=== PATIENT | female | born 2000 | race Caucasian/White ===

== ENCOUNTER 2024-04-16 10:20 | Day surgery (SDC) | payer BC ==
[2024-04-08 14:48] LABS: BILIRUBIN,URINE NEGATIVE (Neg); CLARITY,URINE CLEAR (Clear); COLOR,URINE YELLOW (Yellow); GLUCOSE, URINE NEGATIVE (Neg); KETONES,URINE NEGATIVE (Neg); LEUKOCYTE ESTERASE ,URINE NEGATIVE (Neg); NITRITES, URINE NEGATIVE (Neg); OCCULT BLOOD,URINE SMALL (Neg); PH,URINE 8.5 (4.8-8.0); PROTEIN,URINE NEGATIVE (Neg)
[2024-04-08 14:50] LABS: BASOPHILS # (AUTO) 0.1 X10'3 (0-0.2); BASOPHILS % (AUTO) 0.7 % (0-1); EOSINOPHILS # (AUTO) 0.4 X10'3 (0-0.9); EOSINOPHILS % (AUTO) 2.9 % (0-6); LYMPHOCYTES # (AUTO) 3.1 X10'3 (1.1-4.8); MEAN CORPUSCULAR HEMOGLOBIN 28.8 PG (27.0-31.0); MEAN CORPUSCULAR HGB CONC 32.5 g/dL (33.0-36.5); MEAN CORPUSCULAR VOLUME 88.8 FL (78-98); MEAN PLATELET VOLUME 8.4 FL (7.4-10.4); MONOCYTES # (AUTO) 0.7 X10'3 (0-0.9); MONOCYTES % (AUTO) 5.9 % (2-12); NEUTROPHILS # (AUTO) 7.8 X10'3 (1.8-7.7); NEUTROPHILS % (AUTO) 64.5 % (42-75); PRE OP PLATELET COUNT 359 X10'3 (140-440); PRE OP WHITE BLOOD COUNT 12.1 10'3 (4.8-10.8); RED BLOOD COUNT 4.85 X10'6 (4.20-5.60); RED CELL DISTRIBUTION WIDTH 13.6 % (11.5-14.5)
[2024-04-08 15:05] LABS: UA COLLECTION TYPE NON-SPECIFIED
[2024-04-08 15:07] LABS: ALBUMIN 3.5 G/DL (3.4-5.0); ALBUMIN/GLOBULIN RATIO 0.9 (1.1-1.5); ALKALINE PHOSPHATASE 130 IU/L (46-116); BLOOD UREA NITROGEN 6 MG/DL (7-18); BUN/CREATININE RATIO 7.3 (10.0-20.0); CALCIUM 8.7 MG/DL (8.5-10.1); CHLORIDE 101 MMOL/L (99-107); CREATININE 0.82 MG/DL (0.40-0.90); PRE OP ALT 44 U/L (30-65); PRE OP ANION GAP 7 (8-16); PRE OP AST 29 U/L (10-37); PRE OP BILIRUB, TOTAL 0.3 MG/DL (0.0-1.0); PRE OP GLUCOSE 100 MG/DL (70-104); PRE OP POTASSIUM 3.6 MMOL/L (3.4-5.1); PRE OP SODIUM 139 MMOL/L (135-145); TOTAL CARBON DIOXIDE 31.2 MMOL/L (24-32); TOTAL PROTEIN 7.4 G/DL (6.4-8.2); eGFR 85 ML/MIN
[2024-04-08 15:09] LABS: HCG SERUM QL NEGATIVE
[2024-04-08 15:11] LABS: SQUAMOUS EPITHELIAL CELL,UR MANY /LPF (FEW)
[2024-04-08 15:12] LABS: RBC,URINE 0-2 /HPF (0-2)
[2024-04-08 15:13] LABS: BACTERIA,URINE FEW /HPF (Neg)
[2024-04-16] VITALS (7 sets, daily range): BP systolic 125–153; BP diastolic 80–94; PULSE 70–114; RESP 16; TEMP 99.1; O2SAT 93–97
[~2024-04-16] VITALS: Ht 162.6 cm; Wt 122.2 kg
[2024-04-16] MEDS: Cefazolin 3 GM/100ML NS IVPB 100 ML IV ONE (05:30)
[~2024-04-16 10:20] MED LIST: AMPH10TA2 PO; BUPR-561 PO; CARI4.5C PO; DESV50TA20 PO; LITH300C PO; LORA-269 PO; PRAZ5CAP2 PO; QUET100T34 PO; TIRZ2.5P SQ
[2024-04-16] MEDS: famotidine 20mg tablet PO ONE (11:11)
[2024-04-16] MEDS: ringers solution, lacted 1,000 ML IV SCH (11:12)
[2024-04-16] MEDS ORDERED: LIDOcaine 2% (20mg/ml) 5ml vial ONE (12:15)
[2024-04-16] MEDS ORDERED: propofol inj 20 ML IV ONE (12:15)
[2024-04-16] MEDS ORDERED: BUPIVAcaine 0.5% inj/PF 60 ML ONE (12:17)
[2024-04-16] MEDS ORDERED: BUPIVACAINE liposomal/PF 13.3 MG/ML vial IM ONE (12:17)
[2024-04-16] MEDS ORDERED: sevoflurane 250ml liquid IH ONE (12:50)
[2024-04-16] MEDS ORDERED: fentaNYL/PF 50MCG/1 ML 2ML syringe ONE ×2 (12:53→15:46)
[2024-04-16] MEDS ORDERED: midazolam 1 mg/ML 2ml injection ONE (12:53)
[2024-04-16] MEDS ORDERED: acetaminophen 1,000mg/100ml IV 100 ML IV ONE (13:21)
[2024-04-16] MEDS ORDERED: ondansetron/PF 4mg/2ml inj ONE (13:22)
[2024-04-16] MEDS ORDERED: ketorolac trometh 30MG/ML vial 30 MG/ML VIAL ONE (14:47)
[2024-04-16] MEDS ORDERED: bacitracin 15gm ointment TP ONE (14:56)
[2024-04-16] MEDS: ondansetron/PF 4mg/2ml inj ONE (16:17)
[2024-04-16] MEDS ORDERED: ondansetron/PF 4mg/2ml inj IV PRN (16:20)
[2024-04-16] MEDS ORDERED: hydrALAZINE 20mg/ml inj. IV PRN (16:20)
[2024-04-16] MEDS ORDERED: labetalol 20mg/4ml (5mg/ml) syringe IV PRN (16:20)
[2024-04-16] MEDS ORDERED: proMETHazine 25mg rectal suppository RC PRN ×2 (16:20)
[2024-04-16] MEDS ORDERED: morphine 2 MG/ML inj. syringe IV PRN (16:20)
[2024-04-16] MEDS ORDERED: ringers solution, lacted 1,000 ML IV SCH (16:20)
[2024-04-16] MEDS ORDERED: fentaNYL/PF 50MCG/1 ML 2ML syringe IV PRN (16:20)
[2024-04-16] MEDS ORDERED: scopolamine 1MG/72H patch 1 PATCH PATCH.TD.3 TD SCH (16:20)
[2024-04-16] MEDS ORDERED: morphine 4 MG/ML inj SYRINge IV PRN (16:20)
[2024-04-16] MEDS: proCHLORperazine 10 MG/2 ml inj IV PRN (16:31)
[2024-04-16] MEDS: fentaNYL/PF 50MCG/1 ML 2ML syringe IV PRN (16:31)
== END 2024-04-16 17:15 | disposition home or self-care (01) ==
LOC: PRE-OP 10:20 → PAS 17:15
PROVIDERS: ATTEND Podiatrist Foot & Ankle Surgery
DX: M25.371 Other instability, right ankle (principal); M25.571 Pain in right ankle and joints of right foot; M65.871 Other synovitis and tenosynovitis, right ankle and foot; G89.18 Other acute postprocedural pain; E66.01 Morbid (severe) obesity due to excess calories; G47.33 Obstructive sleep apnea (adult) (pediatric); F41.9 Anxiety disorder, unspecified; F31.9 Bipolar disorder, unspecified; Z79.899 Other long term (current) drug therapy; Z90.89 Acquired absence of other organs; Z98.890 Other specified postprocedural states; Z68.42 Body mass index [BMI] 45.0-49.9, adult; Z88.8 Allergy status to other drugs, medicaments and biological substances
CPT/HCPCS: 27698; 29898; 36415; 64445; 64447; 73600; 80053; 81001; 82948; 84703; 85025; 93005; A6222; C1713; C9290; J0131; J0690; J0780; J1100; J1885; J2250; J2405; J2704; J3010; J3490; J7120; Z7506; Z7508; Z7512; 76000; A4618; A6449; A7000; J2003

== ENCOUNTER 2025-01-14 05:23 | Day surgery (SDC) | payer MEDICAID ==
[2025-01-07 14:43] LABS: LEUKOCYTE ESTERASE ,URINE NEGATIVE (Neg); MEAN PLATELET VOLUME 8.6 FL (7.4-10.4); NITRITES, URINE NEGATIVE (Neg); OCCULT BLOOD,URINE NEGATIVE (Neg); PRE OP HEMATOCRIT 41.5 % (35.0-45.0); PRE OP HEMOGLOBIN 14.0 g/dL (12.0-16.0); PRE OP PLATELET COUNT 380 X10'3 (140-440); PRE OP WHITE BLOOD COUNT 14.8 10'3 (4.8-10.8); RED CELL DISTRIBUTION WIDTH 14.0 % (11.5-14.5)
[2025-01-07 14:46] LABS: UA COLLECTION TYPE NON-SPECIFIED
[2025-01-07 14:50] LABS: SQUAMOUS EPITHELIAL CELL,UR MANY /LPF (FEW)
[2025-01-07 15:10] LABS: HCG SERUM QL NEGATIVE
[2025-01-07 15:16] LABS: CREATININE 0.86 MG/DL (0.40-0.90); PRE OP ALT 49 U/L (30-65); PRE OP ANION GAP 7 (8-16); PRE OP AST 22 U/L (10-37); PRE OP BILIRUB, TOTAL 0.2 MG/DL (0.0-1.0); PRE OP GLUCOSE 130 MG/DL (70-104); PRE OP POTASSIUM 3.8 MMOL/L (3.4-5.1); PRE OP SODIUM 136 MMOL/L (135-145); TOTAL CARBON DIOXIDE 25.3 MMOL/L (24-32); eGFR 80 ML/MIN
[2025-01-14] VITALS (10 sets, daily range): BP systolic 93–148; BP diastolic 69–89; PULSE 66–90; RESP 13–17; TEMP 98.1; O2SAT 93–100
[~2025-01-14] VITALS: Ht 162.6 cm; Wt 134.0 kg
[~2025-01-14 05:23] MED LIST changes: -BUPR-561 PO; +ESKE84SP NAS; +LIT300C PO; -LITH300C PO; +PROP20TA6 PO; +TIRZ2.5P; -TIRZ2.5P SQ
[2025-01-14] MEDS ORDERED: DOCUMENT DATE & TIME OF BETA-BLOCKER PO ONE (05:30)
[2025-01-14] MEDS: ringers solution, lacted 1,000 ML IV SCH ×2 (06:20→09:49)
[2025-01-14] MEDS: Cefazolin 3 GM/100ML NS IVPB 100 ML IV ONE (06:21)
[2025-01-14] MEDS ORDERED: BUPIVAcaine/PF 2.5mg/ml (0.25%) 10ml vial ONE (06:37)
[2025-01-14] MEDS ORDERED: bacitracin 15gm ointment TP ONE (06:37)
[2025-01-14] MEDS ORDERED: cloNIDine hcl/PF 100mcg/ml inj ONE (07:15)
[2025-01-14] MEDS ORDERED: MIDAZolam 1 MG/ML 5ML VIAL ONE (07:16)
[2025-01-14] MEDS ORDERED: fentaNYL/PF 50MCG/1 ML 2ML syringe ONE (07:16)
[2025-01-14] MEDS ORDERED: ROPIVAcaine 0.5% (5mg/ml) 30ml vial ONE (07:32)
[2025-01-14] MEDS ORDERED: propofol inj 20 ML IV ONE (07:34)
[2025-01-14] MEDS ORDERED: LIDOcaine 1%/PF 5ML 10 MG/ML VIAL ONE (07:34)
[2025-01-14] MEDS ORDERED: rocuronium 10mg/ml inj IV ONE (07:51)
[2025-01-14] MEDS ORDERED: ondansetron/PF 4mg/2ml inj ONE ×2 (07:51→09:04)
[2025-01-14] MEDS ORDERED: morphine 10mg/ml inj. ONE (08:09)
[2025-01-14] MEDS ORDERED: morphine 4 MG/ML inj SYRINge IV PRN (08:20)
[2025-01-14] MEDS ORDERED: meperidine/PF 25mg/ml syringe IV PRN ×3 (08:20)
[2025-01-14] MEDS ORDERED: enalaprilat 1.25mg/ml 2ml vial IV PRN (08:20)
[2025-01-14] MEDS ORDERED: labetalol 20mg/4ml (5mg/ml) syringe IV PRN (08:20)
[2025-01-14] MEDS: BUPIVAcaine/PF 2.5mg/ml (0.25%) 10ml vial IJ ONE ×2 (08:26→09:35)
--- NOTE | 2025-01-14 08:26 | ANESTHESIA RECORDS ---
Nerve Block Providers to CC ~ Diagnosis: Nerve Block requested by: SRUTHI MORALES DPKyle Neuraxial/Peripheral Nerve Block requested for Post-operative analgesia by Physician above DIAGNOSIS: Post-operative pain. (Body Area) Shoulder: [ ] Arm: [ ] Hand: [ ] Hip: [ ] Knee: [ ] Ankle: [___Left ] Foot: [ left ] Leg: [ ] Abdomen: [ ] Other: [ ] Post-operative pain expected to be/is inadequately managed by oral or IV medicines. Regional anesthetic expected to facilitate rehabilitation and/or discharge from facility. Other:[ ] Procedure Performed: Popliteal Lateral: Left Time out Done?: Yes Time of Time out: 07:12 Procedure Details: PROCEDURE DETAILS: Risks, benefits and alternatives explained Informed consent obtained, and patient wishes to proceed Conscious sedation with indicated monitors Patient positioned, pertinent anatomy defined, sterile technique used Needle used: [ ] 3 1/8 inch Stimuplex Ultra 22ga [x ] 4 inch Stimuplex Ultra 20ga [ ] 6 inch Stimuplex Ultra 20ga [ ] 6 inch, Quikbloc over the needle catheter set 20ga [ ] 4 inch Quikbloc over the needle catheter set 20ga [ ]Other: [ ] Loss of twitch @ [____0.32 ]mA [x ] Single Injection [ ] Catheter Ultrasound Guidance Used: [x ] Yes [ ] No Attempts:[ once ] Medicines injected: [x ]Clonidine Amt:[____80 mcgs ] [x ]Dexamethasone Amt:[___3 mgs ] [x ]Ropivacaine Amt:[__0.5% 30 cc ] [ ]Bupivacaine Amt:[ ] [ ]Lidocaine Amt:[ ] [ ]Exparel 1.33%:[ ] [ ]Epinephrine Amt[ ] [ ]Other: [ ] Intermittent aspiration during local anesthetic administration No symptoms of intraneural or intravenous injection Patient tolerated procedure well Comments Left Popliteal fossa Block Pt in Rt lateral position with Left Leg flexed at 90 Degrees. Lateral approach. Ultrasound probe placed back of thigh 2 inches above the knee joint. Easy visualization of the Sciatic nerve. 1% xylocaine local anesthetic. Easy visualization of Spreading of local anesthetic anterior and posterior to the Sciatic nerve sub paraneurally inside sciatic nerve sheath. Meaningful co nversation t throughout. No Pain or discomfort during injection. RAHUL HUTCHISON MD Jan 14, 2025 08:26
[2025-01-14] MEDS ORDERED: acetaminophen 1,000mg/100ml IV 100 ML IV ONE (08:40)
[2025-01-14] MEDS ORDERED: ketorolac trometh 30MG/ML vial 30 MG/ML VIAL ONE (09:31)
[2025-01-14] MEDS: ondansetron/PF 4mg/2ml inj IV PRN (10:30)
== END 2025-01-14 11:22 | disposition home or self-care (01) ==
LOC: PAS 05:23
PROVIDERS: ATTEND Podiatrist Foot & Ankle Surgery
DX: M25.372 Other instability, left ankle (principal); M65.872 Other synovitis and tenosynovitis, left ankle and foot; M25.472 Effusion, left ankle; G89.18 Other acute postprocedural pain; E66.01 Morbid (severe) obesity due to excess calories; G47.33 Obstructive sleep apnea (adult) (pediatric); Z79.82 Long term (current) use of aspirin; Z79.891 Long term (current) use of opiate analgesic; Z79.899 Other long term (current) drug therapy; Z90.89 Acquired absence of other organs; Z98.890 Other specified postprocedural states; Z68.43 Body mass index [BMI] 50.0-59.9, adult; Z88.8 Allergy status to other drugs, medicaments and biological substances; Z82.49 Family history of ischemic heart disease and other diseases of the circulatory system
CPT/HCPCS: 27698; 29898; 36415; 64445; 80053; 81001; 82948; 84703; 85025; A6222; A6223; C1713; J0131; J0690; J0735; J1885; J2250; J2274; J2405; J2704; J2795; J3010; J3490; J7120; Z7506; Z7508; Z7512; A4618; A6449; A7000